=== PATIENT | female | born 1995 | race American Indian/Alaskan Native ===

== ENCOUNTER 2016-06-10 11:52 | Emergency (ER) | payer MEDICAID ==
[2016-06-10 12:43] LABS: Basophils % (Auto) 0.1 % (0.0-1.8); Eosinophils % (Auto) 2.6 % (0.0-4.3); Hematocrit 32.5 % (30.3-42.9); Hemoglobin 10.6 gm/dl (10.1-14.3); Mean Corpuscular HGB Conc 33 % (30-34); Mean Corpuscular Hemoglobin 29 pg (28-32); Mean Corpuscular Volume 89 fl (79-97); Platelet Count 160 K/mm3 (140-440); Red Blood Count 3.65 M/mm3 (3.65-5.03); Red Cell Distribution Width 15.4 % (13.2-15.2); White Blood Count 13.3 K/mm3 (4.5-11.0)
[2016-06-10 13:14] LABS: Bilirubin,Urine NEG (Negative); Blood,Urine MOD (Negative); Ketones,Urine NEG (Negative); Leukocyte Esterase,Urine LG (Negative); Mucus,Urine FEW /HPF; Nitrite,Urine NEG (Negative); Protein,Urine <15 mg/dL mg/dL (Negative); Urobilinogen,Urine < 2.0 mg/dL (<2.0)
[2016-06-10 14:22] LABS: Anion Gap 17 mmol/L; Blood Urea Nitrogen 10 mg/dL (7-17); Calcium 8.9 mg/dL (8.4-10.2); Carbon Dioxide 21 mmol/L (22-30); Chloride 101.2 mmol/L (98-107); Glucose 76 mg/dL (65-100); Potassium 3.9 mmol/L (3.6-5.0); Sodium 135 mmol/L (137-145)
--- NOTE | 2016-06-10 15:25 | Ultrasound Report ---
COMPLETE OB ULTRASOUND: Endovaginal and transabdominal imaging performed. Gestation: millard Position: cephalic Amniotic Fluid: x Placenta: posterior, complete praevia Placental Grade: 0 Heart Rate: 126 BPM Cervical length: 6.1 cm (Normal > 3 cm) NEUROANATOMY VISUALIZED: Choroid Plexus Cisterna Magnum Cerebellum Lateral Ventricle ANATOMY VISUALIZED: Stomach Kidneys Bladder Diaphragm 4 Chamber Heart Heart 3 Vessel Cord Abd. Cord Insert SPINE VISUALIZED: Longitudinal Transverse AP BPD: 4.3 cm = 19 w 1 d HC: 17.1 cm = 19 w 5 d AC: 14.6 cm = 19 w 6 d FL: 3.1 cm = 19 w 5 d HC/AC Ratio: 1.2 Cephalic Index: 75.5 Estimated Weight: 312 grams Clinical age = 19 w 0 d EDC: 11/04/16 US Gest. Age = 19 w 4 d EDC: 10/31/16
--- NOTE | 2016-06-10 15:37 | Emergency Department Report ---
ED HPI - General Chief complaint: Vaginal Bleeding Stated complaint: VAG BLEED/19WKS PREG Time Seen by Provider: 06/10/16 13:24 Source: patient Mode of arrival: Ambulatory Limitations: No Limitations - History of Present Illness MD Complaint: vaginal bleeding -: Gradual, This morning Radiation: none Severity scale (0 -10): 0 Improves with: none Worsens with: none Associated symptoms: vaginal bleeding. denies: nausea/vomiting, vaginal discharge, headache, vision changes, malaise, dysparuenia, shortness of breath, syncope Vaginal bleeding: light :: Yes Pre-basil care: followed by OB, previous ultrasound confi - Related Data Allergies Allergy/AdvReac Type Severity Reaction Status Date / Time No Known Allergies Allergy Verified 03/10/16 22:21 ED Review of Systems ROS: Stated complaint: VAG BLEED/19WKS PREG Other details as noted in HPI Comment: All other systems reviewed and negative ED Past Medical Hx - Social History Smoking Status: Never Smoker Substance Use Type: Non Opiate Pain, Other ED Physical Exam - General Limitations: No Limitations General appearance: alert, in no apparent distress - Head Head exam: Present: atraumatic, normocephalic - Eye Eye exam: Present: normal appearance - ENT ENT exam: Present: mucous membranes moist - Neck Neck exam: Present: normal inspection - Respiratory Respiratory exam: Present: normal lung sounds bilaterally. Absent: respiratory distress - Cardiovascular Cardiovascular Exam: Present: regular rate, normal rhythm. Absent: systolic murmur, diastolic murmur, rubs, gallop - GI/Abdominal GI/Abdominal exam: Present: soft, normal bowel sounds - Extremities Exam Extremities exam: Present: normal inspection - Back Exam Back exam: Present: normal inspection - Neurological Exam Neurological exam: Present: alert, oriented X3 - Psychiatric Psychiatric exam: Present: normal affect, normal mood - Skin Skin exam: Present: warm, dry, intact, normal color. Absent: rash ED Course Vital Signs 06/10/16 06/10/16 11:58 14:44 Temperature 98.4 F 98.1 F Pulse Rate 79 78 Respiratory 18 16 Rate Blood Pressure 108/55 Blood Pressure 120/68 [Left] O2 Sat by Pulse 100 99 Oximetry ED Medical Decision Making - Lab Data Result diagrams: 06/10/16 12:12 06/10/16 13:50 - Medical Decision Making US : confirming gestation , doing well , good heart tones, will dc and follow up with OB UA : with mild elevation opf WBC at 8, will not treat at this time , she has no symptoms and she prefers not taking abx while Critical care attestation.: If time is entered above; I have spent that time in minutes in the direct care of this critically ill patient, excluding procedure time. ED Disposition Clinical Impression: Disposition: OP ADMITTED IP TO THIS HOSP Is pt being admited?: No Does the pt Need Aspirin: No Condition: Good Instructions: Threatened Miscarriage (ED), (ED) Referrals: PRIMARY CARE, [Primary Care Provider] - 3-5 Days Time of Disposition: 15:37
[2016-06-10 15:46] VITALS: BP 120/68
== END 2016-06-10 15:46 | disposition admitted as inpatient to this hospital (09) ==
LOC: ED 11:52
DX: O20.9 Hemorrhage in early pregnancy, unspecified (principal); Z3A.19 19 weeks gestation of pregnancy
CPT/HCPCS: 36415; 76805; 76817; 80048; 81001; 84702; 85025; 86850; 86870; 86900; 86901

== ENCOUNTER 2016-10-11 16:25 | Outpatient (CLI) | payer SELFPAY ==
[2016-10-11 17:42] LABS: Bilirubin,Urine NEG (Negative); Blood,Urine NEG (Negative); Ketones,Urine NEG (Negative); Leukocyte Esterase,Urine LG (Negative); Nitrite,Urine NEG (Negative); Protein,Urine <15 mg/dL mg/dL (Negative); Urobilinogen,Urine < 2.0 mg/dL (<2.0)
[2016-10-11 17:59] LABS: RBC,Urine < 1.0 /HPF (0.0-6.0); WBC,Urine < 1.0 /HPF (0.0-6.0)
[2016-10-11 18:28] VITALS: BP 112/69
== END 2016-10-11 18:55 | disposition home or self-care (01) ==
LOC: TRG 16:25
PROVIDERS: ATTEND Obstetrics & Gynecology
DX: O47.03 False labor before 37 completed weeks of gestation, third trimester (principal); Z3A.36 36 weeks gestation of pregnancy; Z87.891 Personal history of nicotine dependence
CPT/HCPCS: 59025; 81001

== ENCOUNTER 2016-10-28 07:18 | Outpatient (CLI) | payer SELFPAY ==
[2016-10-28 07:42] VITALS: BP 127/84
== END 2016-10-28 09:40 | disposition home or self-care (01) ==
LOC: TRG 07:18
PROVIDERS: ATTEND Obstetrics & Gynecology
DX: O47.1 False labor at or after 37 completed weeks of gestation (principal); Z3A.39 39 weeks gestation of pregnancy
CPT/HCPCS: 59025

== ENCOUNTER 2016-10-28 23:59 | Inpatient (IN) | payer OTHER ==
[2016-10-29] MEDS ORDERED: BRETHINE IVP PRN (00:18)
[2016-10-29] MEDS ORDERED: ePHEDrine SULFATE IV PRN ×2 (00:18→10:00)
[2016-10-29] MEDS ORDERED: XYLOCAINE 2% INFILTRATI ONE (00:18)
[2016-10-29] MEDS ORDERED: BRETHINE SUB-Q PRN (00:18)
[2016-10-29] MEDS ORDERED: SUBLIMAZE IV PRN (00:18)
[2016-10-29] MEDS ORDERED: MINERAL OIL PO PRN (00:18)
[2016-10-29] MEDS ORDERED: POLYCILLIN/NS 2 GM/100 ML 2 GM/100 ML BAG IV ONE (00:18)
[2016-10-29 00:57] LABS: Hematocrit 34.8 % (30.3-42.9); Hemoglobin 11.3 gm/dl (10.1-14.3); Mean Corpuscular HGB Conc 32 % (30-34); Mean Corpuscular Hemoglobin 29 pg (28-32); Mean Corpuscular Volume 91 fl (79-97); Platelet Count 150 K/mm3 (140-440); Red Blood Count 3.84 M/mm3 (3.65-5.03); Red Cell Distribution Width 15.8 % (13.2-15.2); White Blood Count 11.6 K/mm3 (4.5-11.0)
[2016-10-29] MEDS ORDERED: PITOCin/NS 20 UNIT/1000ML DRIP 20 UNITS/1,000 ML BAG IV SCH (01:00)
[2016-10-29] MEDS: LACTATED RINGERS 1,000 ML IV SCH ×2 (01:02→05:51)
[2016-10-29 01:35] LABS: HIV-1 Antigen p24 Non React (Non React); HIVR-1/2 Ab Non React (Non React)
[2016-10-29] MEDS: STADOL IV PRN ×2 (01:39→04:06)
[2016-10-29 01:43] LABS: Urine Drugs of Abuse Note Disclamer
[2016-10-29] MEDS: POLYCILLIN/NS 1 GM/50 ML 1 GM/50 ML BAG IV SCH ×2 (04:42→08:50)
[2016-10-29] MEDS ORDERED: PITOCin/NS 30 UNIT/500ML 30 UNITS/500 ML BAG IV SCH (07:00)
--- NOTE | 2016-10-29 08:51 | History and Physical Report ---
History of Present Illness Date of examination: 10/29/16 Date of admission: 10/29/16 00:18 Chief complaint: I'm in labor History of present illness: Patient is a 21 year old who presents with contractions. patient recently moved here from [place] and reports having care there but none in [place] and she reports having only 2 visit at [facility]. Per the patient she has had no complications with this Past History Past Medical History: no pertinent history - Obstetrical History Expected Date of Delivery: 11/04/16 Actual Gestation: 39 Week(s) 1 Day(s) : 3 Para: 0 Medications and Allergies Allergies Allergy/AdvReac Type Severity Reaction Status Date / Time No Known Allergies Allergy Verified 10/11/16 16:52 Home Medications Medication Instructions Recorded Confirmed Last Taken Type Ferrous Sulfate [Feosol] 325 mg PO QDAY 10/11/16 10/29/16 10/11/16 09:00 History 1 Vit-Fe Fumar-FA [ 1 tab PO QDAY 10/11/16 10/29/16 10/11/16 09: 00 History Vitamin] 1 Active Meds: Active Medications Butorphanol Tartrate (Stadol) 2 mg IV Q2H PRN PRN Reason: Pain , Severe (7-10) Last Admin: 10/29/16 04:06 Dose: 2 mg Fentanyl (Sublimaze) 100 mcg IV Q2H PRN PRN Reason: Labor Pain Last Admin: 10/29/16 06:55 Dose: 100 mcg Lactated Ringer's (Lactated Ringers) 1,000 mls @ 125 mls/hr IV DIRECT ANTIONETTE Last Admin: 10/29/16 05:51 Dose: 125 mls/hr Oxytocin/Sodium Chloride (Pitocin/Ns 20 Unit/1000ml Drip) 20 units in 1,000 mls @ 125 mls/hr IV DIRECT ANTIONETTE Ampicillin Sodium (Polycillin/Ns 1 Gm/50 Ml) 1 gm in 50 mls @ 100 mls/hr IV Q4HR ANTIONETTE PRN Reason: Protocol Last Admin: 10/29/16 04:42 Dose: 100 mls/hr Oxytocin/Sodium Chloride (Pitocin/Ns 30 Unit/500ml) 30 units in 500 mls @ 4 mls /hr IV TITR ANTIONETTE PRN Reason: Protocol Last Titration: 10/29/16 07:37 Dose: 8 mls/hr, 8 mls/hr Mineral Oil (Mineral Oil) 30 ml PO QHS PRN PRN Reason: Constipation Review of Systems All systems: negative Breasts: deferred - Vital Signs Vital signs: Vital Signs Pulse BP 86 124/58 10/29/16 00:03 10/29/16 00:03 Temp Pulse Resp BP Pulse Ox 97.3 F L 65 18 123/60 98 10/29/16 03:50 10/29/16 07:38 10/29/16 04:06 10/29/16 03:50 10/29/16 07:38 - Physical Exam Breasts: Positive: deferred Cardiovascular: Regular rate, Normal S1, Normal S2 Lungs: Positive: Clear to auscultation, Normal air movement Abdomen: Positive: normal appearance, soft, normal bowel sounds Genitourinary (Female): Positive: normal external genitalia, normal perenium Vulva: both: normal Uterus: Positive: normal size - Obstetrical FHR: auscultation normal Cervical Dilatation: 4 Cervical Effacement Percentage: 70 station: -1 Uterine Contraction Pattern: Regular Uterine Contraction Intensity: Moderate Results Result Diagrams: 10/29/16 00:18 Abnormal lab results 10/29/16 Range/Units 00:18 WBC 11.6 H (4.5-11.0) K/mm3 RDW 15.8 H (13.2-15.2) % All other labs normal. Assessment and Plan patient is a 21 year old who presents here for labor with minimal care and a recent relocation to [place]. Admit for labor. AROM when able. Anticipate .
--- NOTE | 2016-10-29 09:26 | Anesthesia Consultation ---
Anesthesia Consult and Med Hx Date of service: 10/29/16 - Airway Anesthetic Teeth Evaluation: Good Mental/Hyoid Distance: Adequate Intubation Access Assessment: Probably Good - Pre-Operative Health Status ASA Pre-Surgery Classification: ASA2 Proposed Anesthetic Plan: Epidural, Spinal - Pulmonary Hx Asthma: No COPD: No Hx Pneumonia: No - Cardiovascular System Hx Hypertension: No - Central Nervous System Hx Seizures: No Hx Psychiatric Problems: No - Endocrine Hx Renal Disease: No Hx End Stage Renal Disease: No Hx Hypothyroidism: No Hx Hyperthyroidism: No - Hematic Hx Anemia: No Hx Sickle Cell Disease: No - Other Systems Hx Alcohol Use: No
[2016-10-29] MEDS ORDERED: fentaNYL-BUPIV 2 MCG/ML-0.125% 200 MCG/100 ML BAG EPIDURAL SCH (10:00)
[2016-10-29] MEDS ORDERED: NARCAN 2 MG/2 ML IV PRN (10:00)
--- NOTE | 2016-10-29 10:15 | Procedure Note ---
OB Delivery Note - Vaginal Delivery presentation: vertex Delivery position: OA Intrapartum events: no care Delivery augmentation: rupture of membranes Delivery monitor: external FHT, external uterine Route of delivery: Delivery placenta: spontaneous Delivery cord: nuchal cord, 3 umbilical vessels Episiotomy: none Delivery laceration: 2nd degree Delivery repair: chromic Anesthesia: epidural Delivery comments: Viable male delivered over intact perineum with loose nuchal x 1. Mouth and nose suctioned. had vigorous cry and was placed on maternal abdomen. Weight 7 pounds 4 ounces, Apgars 8,9. laceration repaired with 3.0 chromic. Placenta delivered spontaneously and intact with 3vc. Patient tolerated procedure well. IM pitocin given due to inadequate IV. Good hemostasis - Infant A at 1 minute: 8 at 5 minutes: 9 Gender: Male
[2016-10-29] MEDS ORDERED: MILK OF MAGNESIA PO PRN (11:45)
[2016-10-29] MEDS ORDERED: PHENERGAN PR PRN (11:45)
[2016-10-29] MEDS ORDERED: DULCOLAX PR PRN (11:45)
[2016-10-29] MEDS ORDERED: PHENERGAN PO PRN (11:45)
[2016-10-29] MEDS ORDERED: SODIUM CHLORIDE FLUSH SYRINGE 10 ML IV NR (11:45)
[2016-10-29] MEDS ORDERED: ZOFRAN IV PRN (11:45)
[2016-10-29] MEDS ORDERED: NORCO 5/325 PO PRN (11:45)
[2016-10-29] MEDS ORDERED: BENADRYL PO PRN (11:45)
[2016-10-29] MEDS ORDERED: TUCKS PAD TP PRN (11:45)
[2016-10-29] MEDS ORDERED: LANSINOH TP PRN (11:45)
[2016-10-29] MEDS ORDERED: TYLENOL PO PRN (11:45)
[2016-10-29] MEDS: MOTRIN PO SCH ×2 (12:33→17:37)
[2016-10-29 23:54] LABS: Hematocrit 27.7 % (30.3-42.9); Hemoglobin 9.2 gm/dl (10.1-14.3)
[2016-10-30] MEDS: MOTRIN PO SCH ×4 (00:13→18:25)
[2016-10-30] MEDS: COLACE PO SCH ×3 (00:13→22:20)
[2016-10-30] MEDS ORDERED: PRENATAL VITAMIN PO SCH (10:00)
--- NOTE | 2016-10-30 14:11 | Progress Note ---
Subjective Date of service: 10/30/16 Interval history: 1st day after normal vaginal delivery Patient is in the bed, comfortable. Pain is well controlled with pain meds. Ambulated well. No residual neurological deficit. No anesthesia complications Objective - Constitutional Vitals: Vital Signs - 12hr 10/30/16 08:04 Temperature 98.3 F Pulse Rate 79 Respiratory 18 Rate Blood Pressure 118/62 - Labs CBC & Chem 7: 10/29/16 23:35 Labs: Abnormal lab results 10/29/16 Range/Units 23:35 Hgb 9.2 L (10.1-14.3) gm/dl Hct 27.7 L D (30.3-42.9) %
--- NOTE | 2016-10-30 18:07 | Progress Note ---
Assessment and Plan PPD 1 s/p with minimal care. GBS unknown. Plan for discharge on tomorrow Subjective - Subjective Date of service: 10/30/16 Interval history: Patient is a 21 year old who presents with contractions. patient recently moved here from [place] and reports having care there but none in [place] and she reports having only 2 visit at [facility]. Per the patient she has had no complications with this Patient reports: appetite normal, voiding normally, pain well controlled, ambulating normally [place]: doing well Objective - Vital Signs Latest vital signs: Vital Signs Temp Pulse Resp BP 10/30/16 17:04 98.3 F 79 18 111/61 10/30/16 08:04 98.3 F 79 18 118/62 10/30/16 00:00 98.1 F 78 20 134/68 Intake and Output 10/30/16 10/30/16 10/30/16 06:59 14:59 22:59 Intake Total 240 480 240 Balance 240 480 240 Intake: Oral 240 480 240 Other: Total, Intake Amount 240 120 240 # Voids Void 800 1 1 - Exam Breasts: Present: deferred Cardiovascular: Present: Regular rate, Normal S1, Normal S2 Lungs: Present: Clear to auscultation, Normal air movement Abdomen: Present: normal appearance, soft, normal bowel sounds Uterus: Present: normal, firm Extremities: Present: normal Deep Tendon Reflex Grade: Normal +2 - Labs Labs: Abnormal lab results 10/29/16 Range/Units 23:35 Hgb 9.2 L (10.1-14.3) gm/dl Hct 27.7 L D (30.3-42.9) %
--- NOTE | 2016-10-30 18:08 | Discharge Summary ---
Providers - Providers Date of Admission: 10/29/16 00:18 Date of discharge: 10/31/16 Attending physician: GEOVANI SCOTT 10/29/16 11:45 Consult to Case Management [CONS] Routine Services Needed at Discharge: Interior Design Program Chair Additional Physician Instructions: [place]. Transient living during Primary care physician: GEOVANI SCOTT Hospitalization Reason for admission: active labor Delivery: Episiotomy: none Discharge diagnosis: IUP at term delivered baby: male Condition at discharge: Good Disposition: DC-01 TO HOME OR SELFCARE Plan - Discharge Medications Prescriptions: Ferrous Sulfate [Feosol 325 MG tab] 325 mg PO QDAY #60 tablet Ibuprofen [Motrin 600 MG tab] 600 mg PO Q6H #40 tablet - Provider Discharge Summary Activity: routine, no sex for 6 weeks, no heavy lifting 4 weeks, no strenuous exercise Diet: routine Instructions: routine Additional instructions: [] Smoking cessation referral if applicable(refer to patient education folder for contact #) [] Refer to [facility]'s [facility] Booklet Call your doctor immediately for: * Fever > 100.5 * Heavy vaginal bleeding ( >1 pad per hour) * Severe persistent headache * Shortness of breath * Reddened, hot, painful area to leg or breast * Drainage or odor from incision. * Keep incision clean and dry at all times and follow doctor's instructions regarding bathing/showering - Follow up plan Follow up: GEOVANI SCOTT MD [Primary Care Provider] - 14 Days
[2016-10-31] MEDS: MOTRIN PO SCH ×2 (00:13→06:03)
[2016-10-31] MEDS ORDERED: BOOSTRIX IM ONE (06:00)
[2016-10-31 09:20] VITALS: BP 133/65
--- NOTE | 2016-10-31 12:28 | Progress Note ---
Subjective Date of service: 10/31/16 Interval history: Pt doing well. No anesthetic related complaints. Objective - Constitutional Vitals: Vital Signs - 12hr 10/31/16 08:10 Temperature 98.8 F Pulse Rate 90 Respiratory 18 Rate Blood Pressure 133/65 - Labs CBC & Chem 7: 10/29/16 23:35
== END 2016-10-31 11:30 | disposition home or self-care (01) | DRG 775 ==
LOC: TRG 23:59 → LD 10-29 00:18 → OB 10-29 11:25
PROVIDERS: ADMIT Obstetrics & Gynecology; ATTEND Obstetrics & Gynecology
PROC: 10E0XZZ Delivery of Products of Conception, External Approach (ICD-10-PCS; principal; 2016-10-29)
PROC: 0KQM0ZZ Repair Perineum Muscle, Open Approach (ICD-10-PCS; 2016-10-29)
PROC: 3E0S3CZ (ICD-10-PCS; 2016-10-29)
PROC: 00HU33Z Insertion of Infusion Device into Spinal Canal, Percutaneous Approach (ICD-10-PCS; 2016-10-29)
PROC: 30233S1 Transfusion of Nonautologous Globulin into Peripheral Vein, Percutaneous Approach (ICD-10-PCS; 2016-10-29)
DX: O69.81X0 Labor and delivery complicated by cord around neck, without compression, not applicable or unspecified (principal); O70.1 Second degree perineal laceration during delivery; Z3A.39 39 weeks gestation of pregnancy; Z37.0 Single live birth; Z23 Encounter for immunization
CPT/HCPCS: 36415; 80307; 85014; 85018; 85027; 85461; 86592; 86706; 86762; 86803; 86850; 86900; 86901; 87806; 88307; 90471; 90715; 99211; A6250; G0463; J0290; J0595; J2590; J2790; J3010; J7120